=== PATIENT | female | born 1945 | race Caucasian/White ===

== ENCOUNTER → 2019-03-29 | Outpatient (CLI) | payer MEDICARE ==
[~2019-03-29] MED LIST: BENICAR40 MG PO; DILTIAZEM HCL120 MG PO; GADOBENATE DIMEGLUMINE 1 ML IV ONE; IOPAMIDOL 300 MG/ML 15ML VIAL IT ONE; LIDOCAINE HCL 1% LOCAL INJ 20 ML VIAL ONE; LORAZEPAM INJ 2 MG/ML VIAL ONE; MAXZIDE 37.5 M1 EACH PO; NORCO 10-325 T1 EACH PO; PANTOPRAZOLE SO40 MG PO; VITAMIN D PO
--- NOTE | 2019-03-29 13:26 | Diagnostic Imaging Report ---
TECHNIQUE: Magnetic resonance imaging of the LEFT SHOULDER was performed after intra-articular injected contrast. COMPARISON: None available. HISTORY: Shoulder pain FINDINGS: MUSCLES AND TENDONS: Rotator Cuff: Tendons: Interstitial tear of the supraspinatus tendon insertion coronal image 13 and 14 and additional partial-thickness articular sided tearing of the supraspinatus coronal image 14 and 15. Minimal retraction. Muscles: No focal muscle atrophy. Biceps Tendon: The long head of the biceps tendon is intact and within the intertubercular groove. GLENOHUMERAL JOINT: Glenoid Labrum: Diffuse labral tearing. Articular Cartilage: Diffuse high-grade cartilage loss AC JOINT AND ACROMION: No hypertrophic degenerative changes of the acromioclavicular joint. Subacromial spurring BONE: No focal or infiltrative bone marrow replacing abnormality. No acute fracture. SOFT TISSUES: Otherwise, the soft tissues appear unremarkable. IMPRESSION: Supraspinatus interstitial and partial thickness articular sided tearing. No full-thickness defect or atrophy. Glenohumeral degenerative arthrosis. Subacromial spurring. Signed by: Dr. Jeffrey Hanson M.D. on 03/29/2019 1:23 PM
--- NOTE | 2019-03-29 13:50 | Diagnostic Imaging Report ---
EXAM: Left glenohumeral joint arthrogram. DATE: 03/29/2019 9:20 AM INDICATION: Left shoulder pain COMPARISON: None Physician performing procedure: Dr. Blaire Fairchild PROCEDURES PERFORMED: Fluoroscopically-guided left glenohumeral arthrogram with MRI to follow Fluoro time: 0.6 minutes Dose: 0.6mGy Anesthesia: Local, 1% lidocaine Devices: 22 gauge BD Quincke needle PROCEDURE REPORT: After written and verbal consent were obtained, the patient was placed supine on the fluoroscopy table with the left glenohumeral joint in external rotation. Using fluoroscopic guidance, sterile technique and local anesthesia, a 22 gauge, 3.5 inch needle was inserted percutaneously into the left glenohumeral joint. Proper placement was confirmed by injecting Isovue 300 into the joint under fluoroscopy. Next, 12cc of a 1:200 mixture of Multihance with Isovue 300 were then injected. Complications: None Blood loss: Minimal Samples: None Patient disposition: MRI in stable condition. IMPRESSION: Uncomplicated fluoroscopically-guided left glenohumeral arthrogram with MRI to follow. Contrast is within the joint. See MRI report for full findings. Signed by: Blaire Fairchild MD on 03/29/2019 1:47 PM
== END ==
LOC: DX 09:09
PROVIDERS: ATTEND Specialist
DX: S46.092A Other injury of muscle(s) and tendon(s) of the rotator cuff of left shoulder, initial encounter (principal)
CPT/HCPCS: 20610; 23350; 73222; 77002; A9577; J2060; Q9967; J2001

== ENCOUNTER 2019-07-02 10:00 | Outpatient (RCR) | payer MEDICARE ==
[~2019-07-02 10:00] MED LIST changes: -GADOBENATE DIMEGLUMINE 1 ML IV ONE; -IOPAMIDOL 300 MG/ML 15ML VIAL IT ONE; -LIDOCAINE HCL 1% LOCAL INJ 20 ML VIAL ONE; -LORAZEPAM INJ 2 MG/ML VIAL ONE
== END 2019-07-13 ==
LOC: PT 10:00
PROVIDERS: ATTEND Specialist
DX: M17.12 Unilateral primary osteoarthritis, left knee (principal)